=== PATIENT | female | born 1970 | race Two or more races ===

== ENCOUNTER 2017-07-11 14:07 | Emergency (ER) | payer MEDICAID ==
[~2017-07-11] VITALS: Ht 152.4 cm; Wt 63.0 kg
[2017-07-11 18:45] VITALS: BP 136/78
[2017-07-11] MEDS ORDERED: IBUPROFEN 600 MG TAB PO ONE (19:00)
== END 2017-07-11 19:07 | disposition home or self-care (01) ==
LOC: ER 14:07
DX: S00.03XA Contusion of scalp, initial encounter (principal); W01.0XXA Fall on same level from slipping, tripping and stumbling without subsequent striking against object, initial encounter; Y93.89 Activity, other specified; Y99.8 Other external cause status; Y92.89 Other specified places as the place of occurrence of the external cause
CPT/HCPCS: 70450